=== PATIENT | male | born 1985 | race African-American/Black ===

== ENCOUNTER 2021-07-23 17:56 | Emergency (ER) | payer BC, OTHER ==
[~2021-07-23] VITALS: Ht 172.7 cm; Wt 127.0 kg
[2021-07-23] MEDS ORDERED: ASPI81TA31 PO (18:20)
[2021-07-23 19:30] LABS: HEMATOCRIT 38.3 % (36.7-47.1); MEAN CORPUSCULAR HEMOGLOBIN 27.5 uug (23.8-33.4); MEAN CORPUSCULAR VOLUME 83.4 fL (73.0-96.2); PLATELET COUNT (AUTO) 262 K/uL (152-348)
[2021-07-23 19:37] LABS: CARBON DIOXIDE 28 mmol/L (21-32); CHLORIDE 103 mmol/L (98-107); CREATININE 1.3 mg/dL (0.6-1.3); GLUCOSE 92 mg/dL (74-106); POTASSIUM 3.7 mmol/L (3.5-5.1); UREA NITROGEN, BLOOD 16 mg/dL (7-18)
[2021-07-23 19:45] LABS: ALANINE AMINOTRANSFERASE 25 U/L (16-63); ALKALINE PHOSPHATASE 74 U/L (50-136); ASPARTATE AMINOTRANSFERASE 16 U/L (15-37); BILIRUBIN,DIRECT < 0.1 mg/dL (0.0-0.2); BILIRUBIN,TOTAL 0.2 mg/dL (0.2-1.0); TOTAL PROTEIN, SERUM 7.4 g/dL (6.4-8.2)
[2021-07-23] MEDS ORDERED: ASPIRIN 325 MG TABLET PO ONE (20:15)
[2021-07-23] MEDS ORDERED: ENOXAPARIN SODIUM 100 MG/ML DISP.SYRIN SQ ONE ×2 (20:15→20:24)
[2021-07-23] MEDS ORDERED: ASPIRIN 325 MG TABLET ONE (20:24)
[2021-07-23] MEDS ORDERED: ENOXAPARIN SODIUM 30 MG/0.3 ML DISP.SYRIN ONE (20:25)
[2021-07-23] MEDS ORDERED: NITROGLYCERIN 0.4 MG/TAB BOTTLE SL ONE ×2 (20:30→20:46)
[2021-07-23 20:43] VITALS: BP 115/63
[2021-07-23] MEDS ORDERED: IV NORMAL SALINE 500 ML IV ONE (21:00)
--- NOTE | 2021-07-23 23:35 | NUR ---
MUSTAPHA FROM [facility] CALLED BACK, PT ACCEPTED [address] ROOM: 322 REPORT # [phone]
--- NOTE | 2021-07-24 00:31 | NUR ---
Called [facility], [facility], [facility], [facility]. All are fully booked and cannot provide ALS trasport to [facility]. Per Optcindi Torres the earliest transport is 1500 by [facility]. Number to give report . Going to Tele room 622A.
--- NOTE | 2021-07-24 07:08 | NUR ---
Report given to day shift nurse Uday RODAS.
--- NOTE | 2021-07-24 08:13 | NUR ---
Pt. sleeping in bed, no distress noted.
--- NOTE | 2021-07-24 08:33 | NUR ---
Hannah polanco in [facility] - 07/24/21 at 0848 by NADER 3rd call to give report, RN is "busy"
--- NOTE | 2021-07-24 11:03 | NUR ---
Called ambulances again: [facility], [facility], [facility], [facility], [facility], -- none have [employer] coverage today. ZHANE Reece -- first available around 1930 hours. [facility] still on schedule for approximate ETA of 1530 p/up.
--- NOTE | 2021-07-24 11:12 | NUR ---
[facility] just called, had a cancelation, new ETA is around 1215.
--- NOTE | 2021-07-24 11:31 | NUR ---
Called report to CLARK Chavarria at [facility]. Pt going to: [address] Room [address]983
--- NOTE | 2021-07-24 12:58 | NUR ---
Gave chart and report to Paramedics. Pt transported.
== END 2021-07-24 13:01 | disposition short-term general hospital (02) ==
LOC: ER 17:56
DX: R07.9 Chest pain, unspecified (principal); Z20.822 Contact with and (suspected) exposure to COVID-19; I25.2 Old myocardial infarction; J45.909 Unspecified asthma, uncomplicated; Z79.82 Long term (current) use of aspirin; R77.8 Other specified abnormalities of plasma proteins
CPT/HCPCS: 36415 ×2; 71045; 80048; 80076; 83880; 84484 ×2; 85025; 85379; 87426; 93005 ×2; 96360; 96372; 99285; J1650 ×2; A4663; J7040